=== PATIENT | male | born 1935 | race Caucasian/White ===

== ENCOUNTER 2019-01-23 08:22 | Day surgery (SDC) | payer OTHER ==
[~2019-01-23] VITALS: Ht 160 cm; Wt 71.9 kg
[~2019-01-23 08:22] MED LIST: ACID CONTROL C1 EACH PO; ASPI81CH PO; Aspirin EC81 MG PO; ERGO400 PO; LOVA40 PO; METO50ER PO; TRAM50 PO; VITAMIN D-32000 UNIT PO
[2019-01-23] MEDS ORDERED: Aspirin EC81 MG (08:56)
[2019-01-23] MEDS ORDERED: Gaviscon Foamt1 EACH (08:57)
== END 2019-01-23 10:35 | disposition home or self-care (01) ==
LOC: ORSCSDS 08:22
PROVIDERS: Internal Medicine Gastroenterology
PROC: 0DBK8ZX Excision of Ascending Colon, Via Natural or Artificial Opening Endoscopic, Diagnostic (ICD-10-PCS; principal; 2019-01-23 09:45)
DX: Z12.11 Encounter for screening for malignant neoplasm of colon (principal); K57.30 Diverticulosis of large intestine without perforation or abscess without bleeding; D12.2 Benign neoplasm of ascending colon; Z87.891 Personal history of nicotine dependence; E11.9 Type 2 diabetes mellitus without complications; I10 Essential (primary) hypertension; E78.5 Hyperlipidemia, unspecified; K21.9 Gastro-esophageal reflux disease without esophagitis; Z79.82 Long term (current) use of aspirin; Z79.899 Other long term (current) drug therapy
CPT/HCPCS: 82947; 88305; J2704; J7120

== ENCOUNTER 2021-08-05 11:44 | Inpatient (IN) | payer OTHER ==
[~2021-08-05] VITALS: Ht 160 cm; Wt 67.9 kg
[~2021-08-05 11:44] MED LIST changes: +Aspirin EC81 MG; -ERGO400 PO; +Gaviscon Foamt1 EACH
[2021-08-05 12:45] LABS: BASOPHILS ABSOLUTE AUTO 0.02 K/mm3 (0.00-0.23); BASOPHILS PERCENT AUTO 0 % (0-2); EOSINOPHILS ABSOLUTE AUTO 0.03 K/mm3 (0.00-0.68); EOSINOPHILS PERCENT AUTO 0 % (0-6); Hematocrit 41.1 % (37.0-53.0); Hemoglobin 13.8 g/dL (13.5-17.5); IMMATURE GRAN ABSOLUTE AUTO 0.06 K/mm3 (0.00-0.10); IMMATURE GRAN PERCENT AUTO 1 % (0-1); LYMPHOCYTES ABSOLUTE AUTO 1.31 K/mm3 (0.84-5.20); LYMPHOCYTES PERCENT AUTO 12 % (21-46); MONOCYTES ABSOLUTE AUTO 1.19 K/mm3 (0.16-1.47); MONOCYTES PERCENT AUTO 11 % (4-13); Mean Corpuscular HGB 28.8 pg (26.0-34.0); Mean Corpuscular HGB Conc 33.6 g/dL (31.5-36.5); Mean Corpuscular Volume 86 fL (80-100); Mean Platelet Volume 10.7 fL (9.1-12.4); NEUTROPHILS ABSOLUTE AUTO 8.73 K/mm3 (1.96-9.15); NEUTROPHILS PERCENT AUTO 77 % (41-73); Platelet Count 231 K/mm3 (150-400); RDW Coefficient Variation 13.2 % (11.7-14.2); RDW Standard Deviation 41.6 fL (35.1-46.3); White Blood Cell Count 11.34 K/mm3 (4.00-11.30)
[2021-08-05 13:05] LABS: Albumin/Globulin Ratio 0.7 (0.8-1.8); Bilirubin, Total 0.7 mg/dL (0.1-1.0); Bun/Creatinine Ratio 23.7 (12.0-20.0); Calcium, Blood 8.4 mg/dL (8.5-10.1); Creatinine, Blood 1.35 mg/dL (0.60-1.20); Globulin, Blood 4.1 g/dL (2.2-4.0); Potassium, Blood 4.1 mmol/L (3.5-5.5); Total Protein, Blood 7.1 g/dL (6.4-8.2)
[2021-08-05 13:36] LABS: Influenza A, PCR NEGATIVE (NEGATIVE); Influenza B, PCR NEGATIVE (NEGATIVE); Resp Syncytial Virus, PCR NEGATIVE (NEGATIVE); SARS-Cov-2 (COVID-19) PCR, MMC NEGATIVE (NEGATIVE)
[2021-08-05] MEDS ORDERED: Doxycycline Mo100 M1 PO (18:19)
--- NOTE | 2021-08-05 18:37 | NUR ---
PT ARRIVED TO PCU 6 FROM MEDICAL FLOOR, ASSUMED PT CARE FROM PAMELA GREGORIO ON MEDICAL. DENIES SOB OR CP
--- NOTE | 2021-08-05 18:49 | NUR ---
PT HAD ARRIVED TO FLOOR AT 1540. PT AOX4 AND DENIED ANY CHEST PAIN. PT ABLE TO MAKE NEEDS KNOWN. PT HAD ELEVATED TROPONIN [place] [id number]IGSBY NOTIFIED. DR GRIGSBY REQUESTED PT TO BE TRANSFERED TO PCU. DR GRIGSBY CONTACTED CARDIOLIGIST AND ORDERS WERE FAXED TO PHARMACY. REPORT CALLED TO PCU 6 NURSE PRIOR TO TRANSPORT. NO DISTRESS NOTED AND PT HAD PERSONAL BELONIGS TAKEN WITH HIME.
[2021-08-06 02:28] LABS: BASOPHILS ABSOLUTE AUTO 0.01 K/mm3 (0.00-0.23); BASOPHILS PERCENT AUTO 0 % (0-2); EOSINOPHILS ABSOLUTE AUTO 0.11 K/mm3 (0.00-0.68); EOSINOPHILS PERCENT AUTO 1 % (0-6); Hematocrit 41.5 % (37.0-53.0); Hemoglobin 13.8 g/dL (13.5-17.5); IMMATURE GRAN ABSOLUTE AUTO 0.04 K/mm3 (0.00-0.10); IMMATURE GRAN PERCENT AUTO 0 % (0-1); LYMPHOCYTES ABSOLUTE AUTO 1.39 K/mm3 (0.84-5.20); LYMPHOCYTES PERCENT AUTO 13 % (21-46); MONOCYTES ABSOLUTE AUTO 1.38 K/mm3 (0.16-1.47); MONOCYTES PERCENT AUTO 13 % (4-13); Mean Corpuscular HGB 28.2 pg (26.0-34.0); Mean Corpuscular HGB Conc 33.3 g/dL (31.5-36.5); Mean Corpuscular Volume 85 fL (80-100); Mean Platelet Volume 10.8 fL (9.1-12.4); NEUTROPHILS ABSOLUTE AUTO 7.87 K/mm3 (1.96-9.15); NEUTROPHILS PERCENT AUTO 73 % (41-73); Platelet Count 237 K/mm3 (150-400); RDW Coefficient Variation 13.2 % (11.7-14.2); RDW Standard Deviation 41.6 fL (35.1-46.3)
[2021-08-06 02:46] LABS: Alanine Aminotransfer (ALT/SGP 39 U/L (12-78); Albumin, Blood 2.7 g/dL (3.4-5.0); Albumin/Globulin Ratio 0.6 (0.8-1.8); Alk Phos 65 U/L (50-136); Anion Gap 9 mmol/L (6-16); Aspartate Aminotrans (AST/SGOT 69 U/L (12-37); Bilirubin, Total 0.7 mg/dL (0.1-1.0); Blood Urea Nitrogen 31 mg/dL (8-24); Bun/Creatinine Ratio 23.8 (12.0-20.0); CHOL/HDL RATIO 4.3; CO2, Blood 26 mmol/L (21-32); Calcium, Blood 8.3 mg/dL (8.5-10.1); Chloride, Blood 97 mmol/L (98-108); Cholesterol 150 mg/dL (50-200); Globulin, Blood 4.4 g/dL (2.2-4.0); Glomerular Filtration Rate 53 (60-); Glucose, Blood 152 mg/dL (70-99); HDL Cholesterol 35 mg/dL (>39); LDL/HDL RATIO 2.5; Low Density Lipoprotein Chol 88 mg/dL (0-110); Potassium, Blood 4.4 mmol/L (3.5-5.5); Sodium, Blood 132 mmol/L (136-145); Total Protein, Blood 7.1 g/dL (6.4-8.2); Triglycerides 134 mg/dL (30-160); Very Low Density Lipoprot Chol 26 mg/dL (6-32)
--- NOTE | 2021-08-06 07:11 | NUR ---
SHIFT SUMMARY [id number] PT ORIENTED X4 OVERNIGHT, INCREASED FROM RA --> 4L NC --> BIPAP W/CHEST PAIN AND ST ON TELEMETRY AROUND 0040. MD AND ICU CHARGE PAGED. EKG, IV LASIX X1, MORPHINE X1, AND NITRO SL PRN ORDERED PER MD. SEE EMAR FOR DETAILS. PT REPORTED RESOLUTION OF CP WITH BIPAP. ADEQUATE UOP. WILL PASS ON TO DAY RN
--- NOTE | 2021-08-06 13:18 | NUR ---
PT HAS BEEN A&OX4. DENIES ANY SOB OR CHEST PAIN. PT VOIDING CLEAR, YELLOW URINE WIHTOUT DIFFICULTY. NPO DURING A.M. FOR PROCEDURE. PT LEFT UNIT AT APPROXIMATELY 1250.
--- NOTE | 2021-08-06 17:27 | NUR ---
PT RETURNS FROM [facility]
--- NOTE | 2021-08-06 17:32 | NUR ---
PT RETURNS FROM [facility] WITH RT RADIAL SITE ACCESS. 3 STENTS PLACED IN [employer]. NO ACTIVE BLEEDING NOTED FROM RT RADIAL SITE, NO HEMATOME NOTED, TR BAND IN PLACE WITH 10ML AIR IN BAND. PT A/O X3, ANSWERSING QUESTIONS APPROPRIATELY. REPORTS CONTINUED SOB, DENIES CP. NO PAIN TO RADIAL SITE. PT SITTING UP EATING AT THIS TIME. VSS. PT UPDATING FAMILY AT THIS TIME. WILL PLAN TO RECOVER TR BAND IN 2 HOURS PER PROTOCOL.
--- NOTE | 2021-08-06 18:31 | NUR ---
SHIFT NOTE PT BEGAN THE DAY FREE OF CP AND SOME REPORTED SOB THAT HE STS IS UNCHANGED. PT A/O X4, ANSWERING QUESTIONS IN FULL SENTENCES. PT WENT TO [facility]IFT [facility] JUST BEFORE 1300 THIS AFTERNOON, AND RETURNED AT 1727 WITH 3 STENTS PLACED, ACCESS THROUGH RT RADIAL ARTERY. TR BAND IN PLACE, 10ML AIR IN TR BAND, TR BAND CAN BEGIN RECOVERY AROUND 1927 TONIGHT. NO ACTIVE BLEEDING NOTED AT THIS TIME FROM SITE, TR BAND IN PLACE, RADIAL PULSES INTACT, FULL ROM OF RT FINGERS, GOOD SENSATION OF RT HAND AND FINGERS, SKIN PWD, CAP REFILL <3 SECONDS. PT DENIES PAIN TO RADIAL SITE. DENIES CP, REPORTS SOME CONTINUED SOB, LUNG SOUNDS ARE COARSE T/O WITH AUDIBLE WHEEZES ON EXPIRATION AT THIS TIME. VSS. PT RESTING WEL ILA BED AT THIS TIME, HE DENIES FURTHER NEEDS, CALL LIGHT WITHIN REACH
[2021-08-07 04:07] LABS: BASOPHILS ABSOLUTE AUTO 0.01 K/mm3 (0.00-0.23); BASOPHILS PERCENT AUTO 0 % (0-2); EOSINOPHILS ABSOLUTE AUTO 0.04 K/mm3 (0.00-0.68); EOSINOPHILS PERCENT AUTO 0 % (0-6); Hematocrit 39.9 % (37.0-53.0); Hemoglobin 13.4 g/dL (13.5-17.5); IMMATURE GRAN ABSOLUTE AUTO 0.04 K/mm3 (0.00-0.10); IMMATURE GRAN PERCENT AUTO 0 % (0-1); LYMPHOCYTES ABSOLUTE AUTO 1.54 K/mm3 (0.84-5.20); LYMPHOCYTES PERCENT AUTO 14 % (21-46); MONOCYTES ABSOLUTE AUTO 1.79 K/mm3 (0.16-1.47); MONOCYTES PERCENT AUTO 16 % (4-13); Mean Corpuscular HGB 28.4 pg (26.0-34.0); Mean Corpuscular HGB Conc 33.6 g/dL (31.5-36.5); Mean Corpuscular Volume 85 fL (80-100); Mean Platelet Volume 10.2 fL (9.1-12.4); NEUTROPHILS ABSOLUTE AUTO 7.71 K/mm3 (1.96-9.15); NEUTROPHILS PERCENT AUTO 69 % (41-73); Platelet Count 259 K/mm3 (150-400); RDW Coefficient Variation 13.3 % (11.7-14.2); RDW Standard Deviation 41.3 fL (35.1-46.3); Red Blood Cell Count 4.72 M/mm3 (4.30-5.90); White Blood Cell Count 11.13 K/mm3 (4.00-11.30)
[2021-08-07 04:30] LABS: Bun/Creatinine Ratio 22.4 (12.0-20.0); Calcium, Blood 8.1 mg/dL (8.5-10.1); Creatinine, Blood 1.47 mg/dL (0.60-1.20); Magnesium, Blood 2.3 mg/dL (1.6-2.4); Potassium, Blood 4.2 mmol/L (3.5-5.5)
--- NOTE | 2021-08-07 06:35 | NUR ---
ASSUMED CARE OF PATIENT @1904. TR BAND IN PLACE, VSS POST PCI W/INTERVENTION. 2ML AIR REMOVED Q15MIN - TOTAL OF 10ML REMOVED. TR BAND REMOVED @ 2114 WITH SITE CDI. 2134 - PT CALLED OUT WITH COMPLAINTS OF SOA AT REST, PT TACHYPNEIC, O2 NEEDS INCREASED FROM 2.5 TO 5L NC. LUNGS W/CRACKLES AND DIM. ST ON TELE IN 110S-120S. CARDIOLOGY ON-CALL AND RT PAGED. RT TO BEDSIDE, CARDIOLOGY ON FLOOR AND DISCUSSED PT WITH DR. LIVINGSTON. ORDERS RECEIVED TO STOP IVF, IV BUMEX X1, AND BIPAP APPLIED. PT REPORTED RELIEF OF SOA. PT REMAINED ON BIPAP OVERNIGHT, SLEPT INTERMITTENTLY. VSS. NO ACUTE CHANGES BEYOND WHAT IS NOTED ABOVE. WILL PASS ON TO DAY RN
--- NOTE | 2021-08-07 18:30 | NUR ---
PT SUMMARY: PT TITRATED DOWN TO 2L ON O2 VIA NASAL CANNULA SATS KEPT ABOVE 95%, BIPAP AT BEDSIDE PRN. PT REPORTED HE'S BEEN HAVING PINK SPUTUM, SPUTUM COLLECTED AND SENT TO LAB TO CULTURE, PT STILL HAS /SOB MOSTLY WITH EXERTION, ON IV LASIX. DENIES ANY CHEST PAIN/DISCOMFORT. RIGHT RADIAL ACCESS SITE REMAINED INTACT WITH TEG DRESSING ON. VITALS STABLE HRR ST 90-110'S, BP SYSTOLIC 115-140'S, AFEBRILE. PT HAS BEEN MOVING INDEPENDENTLY IN BED, CALLS APPROPRIATELY ABLE TO AMBULATE TO THE BATHROOM WITH NO ISSUES. PT FOR POSSIBLE DC IN AM. NO OTHER ISSUES REPORTED AT THIS TIME. WILL REPORT TO ONCOMING SHIFT
[2021-08-08 03:42] LABS: Hematocrit 35.5 % (37.0-53.0); Hemoglobin 11.9 g/dL (13.5-17.5); Mean Corpuscular HGB 28.3 pg (26.0-34.0); Mean Corpuscular HGB Conc 33.5 g/dL (31.5-36.5); Mean Corpuscular Volume 85 fL (80-100); Platelet Count 276 K/mm3 (150-400); RDW Coefficient Variation 13.2 % (11.7-14.2); RDW Standard Deviation 41.1 fL (35.1-46.3); White Blood Cell Count 9.43 K/mm3 (4.00-11.30)
[2021-08-08 04:07] LABS: Bun/Creatinine Ratio 26.6 (12.0-20.0); Calcium, Blood 8.1 mg/dL (8.5-10.1); Creatinine, Blood 1.39 mg/dL (0.60-1.20); Magnesium, Blood 2.3 mg/dL (1.6-2.4); Potassium, Blood 4.3 mmol/L (3.5-5.5)
--- NOTE | 2021-08-08 05:59 | NUR ---
ASSUMED CARE OF PT @1900. PT ORIENTED X4, NO COMPLAINTS OF PAIN. LUNGS DIM W/CRACKLES IN BASES. SOA ON EXERTION. PT ON 2-3L NC OVERNIGHT, UNABLE TO TITRATE DOWN D/T INTOLERANCE. O2 SATS 92-95% ST ON TELEMETRY. ADEQUATE UOP PER URINAL VOIDS. WILL PASS ON TO DAY RN
[2021-08-08] MEDS ORDERED: Aspir 8181 MG PO (11:21)
[2021-08-08] MEDS ORDERED: ATORVASTATIN CA40 MG PO (11:21)
[2021-08-08] MEDS ORDERED: CLOP75 PO (11:22)
[2021-08-08] MEDS ORDERED: ISOSORBIDE MONO60 MG PO (11:23)
[2021-08-08] MEDS ORDERED: TORSE20 PO (11:24)
[2021-08-08] MEDS ORDERED: NITR.4SL SL (11:24)
--- NOTE | 2021-08-08 12:39 | NUR ---
PT DISCHARGE TO HOME TODAY WITH DISCHARGE ORDERS. PT TITRATED TO RA PT SATS KEPT ABOVE 90% EVEN WITH AMBULATION AND WHEN SLEEPING. PT STATED STEPHANIE FELLS MUCH BETTER TODAY. DISCHARGE INSTRUCTIONS AND MEDICATIONS DISCLOSED WITH THE PT, PT VERBALIZED UNDERSTANDING. TO FF-UP WITH PCP AND CARDIOLOGY REFERRAL FAXED TO THE OFFICE, PRESCRIPTIONS SENT TO [facility]. ALL BELONGINGS SENT WITH THE PT. ACCOMPANIED TO DISCHARGE VIA WHEELCHAIR PICKED UP BYT SON AND .
== END 2021-08-08 12:04 | disposition home or self-care (01) | DRG 246 ==
LOC: ER 11:44 → PCU 15:15 → MEDS 15:15 → PCU 18:39
PROVIDERS: Internal Medicine; Internal Medicine Cardiovascular Disease; Internal Medicine Interventional Cardiology; Physician Assistant; ADMIT Internal Medicine
PROC: 4A023N7 Measurement of Cardiac Sampling and Pressure, Left Heart, Percutaneous Approach (ICD-10-PCS; principal; 2021-08-06)
PROC: B2111ZZ Fluoroscopy of Multiple Coronary Arteries using Low Osmolar Contrast (ICD-10-PCS; 2021-08-06)
PROC: 027135Z Dilation of Coronary Artery, Two Arteries with Two Drug-eluting Intraluminal Devices, Percutaneous Approach (ICD-10-PCS; 2021-08-06)
PROC: B240ZZ3 Ultrasonography of Single Coronary Artery, Intravascular (ICD-10-PCS; 2021-08-06)
DX: I21.4 Non-ST elevation (NSTEMI) myocardial infarction (principal); I50.31 Acute diastolic (congestive) heart failure; I13.0 Hypertensive heart and chronic kidney disease with heart failure and stage 1 through stage 4 chronic kidney disease, or unspecified chronic kidney disease; N17.9 Acute kidney failure, unspecified; E87.1 Hypo-osmolality and hyponatremia; Z20.822 Contact with and (suspected) exposure to COVID-19; R77.8 Other specified abnormalities of plasma proteins; I25.2 Old myocardial infarction; N18.30 Chronic kidney disease, stage 3 unspecified; I34.0 Nonrheumatic mitral (valve) insufficiency; I27.20 Pulmonary hypertension, unspecified; I25.5 Ischemic cardiomyopathy; E11.22 Type 2 diabetes mellitus with diabetic chronic kidney disease; E78.5 Hyperlipidemia, unspecified; Z96.662 Presence of left artificial ankle joint; Z98.61 Coronary angioplasty status; Z79.02 Long term (current) use of antithrombotics/antiplatelets; Z88.0 Allergy status to penicillin; Z79.899 Other long term (current) drug therapy; Z79.82 Long term (current) use of aspirin; Z87.891 Personal history of nicotine dependence
CPT/HCPCS: 0241U; 36415; 71046; 80048; 80053; 80061; 82947; 83735; 83880; 84145; 84484; 85025; 85027; 85347; 85520; 86850; 86900; 86901; 87070; 87205; 92978; 92979; 93005; 93010; 93306; 93458; 94660; 94762; 96365; 96375; 99152; 99153; 99285-25; A9270; C1725; C1753; C1769; C1874; C1887; C1894; C9600; C9601; J0456; J0696; J1644; J1940; J1956; J2250; J2370; J3010; J7030; J7040; J7050; Q9967

== ENCOUNTER 2021-09-06 12:28 | Emergency (ER) | payer OTHER ==
[~2021-09-06] VITALS: Ht 160 cm; Wt 69.0 kg
[~2021-09-06 12:28] MED LIST changes: +ATORVASTATIN CA40 MG PO; +Aspir 8181 MG PO; +CLOP75 PO; +Doxycycline Mo100 M1 PO; +ISOSORBIDE MONO60 MG PO; +NITR.4SL SL; +TORSE20 PO
[2021-09-06 13:13] LABS: BASOPHILS ABSOLUTE AUTO 0.02 K/mm3 (0.00-0.23); BASOPHILS PERCENT AUTO 0 % (0-2); EOSINOPHILS ABSOLUTE AUTO 0.37 K/mm3 (0.00-0.68); EOSINOPHILS PERCENT AUTO 5 % (0-6); Hematocrit 38.1 % (37.0-53.0); Hemoglobin 12.5 g/dL (13.5-17.5); IMMATURE GRAN ABSOLUTE AUTO 0.02 K/mm3 (0.00-0.10); IMMATURE GRAN PERCENT AUTO 0 % (0-1); LYMPHOCYTES ABSOLUTE AUTO 2.14 K/mm3 (0.84-5.20); LYMPHOCYTES PERCENT AUTO 31 % (21-46); MONOCYTES ABSOLUTE AUTO 0.71 K/mm3 (0.16-1.47); MONOCYTES PERCENT AUTO 10 % (4-13); Mean Corpuscular HGB 28.5 pg (26.0-34.0); Mean Corpuscular HGB Conc 32.8 g/dL (31.5-36.5); Mean Corpuscular Volume 87 fL (80-100); Mean Platelet Volume 10.4 fL (9.1-12.4); NEUTROPHILS ABSOLUTE AUTO 3.73 K/mm3 (1.96-9.15); NEUTROPHILS PERCENT AUTO 53 % (41-73); Platelet Count 168 K/mm3 (150-400); RDW Coefficient Variation 13.6 % (11.7-14.2); RDW Standard Deviation 43.3 fL (35.1-46.3); Red Blood Cell Count 4.39 M/mm3 (4.30-5.90); White Blood Cell Count 6.99 K/mm3 (4.00-11.30)
[2021-09-06 13:39] LABS: Albumin, Blood 3.2 g/dL (3.4-5.0); Albumin/Globulin Ratio 0.9 (0.8-1.8); Bilirubin, Total 0.5 mg/dL (0.1-1.0); Bun/Creatinine Ratio 16.5 (12.0-20.0); Calcium, Blood 8.7 mg/dL (8.5-10.1); Creatinine, Blood 1.33 mg/dL (0.60-1.20); Globulin, Blood 3.6 g/dL (2.2-4.0); Potassium, Blood 4.2 mmol/L (3.5-5.5); Total Protein, Blood 6.8 g/dL (6.4-8.2)
[2021-09-06] MEDS ORDERED: Aldactone50 MG PO ×2 (15:21→15:33)
[2021-09-06] MEDS ORDERED: TORSE20 PO (15:33)
== END 2021-09-06 16:13 | disposition home or self-care (01) ==
LOC: ER 12:28
PROVIDERS: Emergency Medicine
DX: I11.0 Hypertensive heart disease with heart failure (principal); I50.9 Heart failure, unspecified; I25.10 Atherosclerotic heart disease of native coronary artery without angina pectoris; I25.5 Ischemic cardiomyopathy; E78.00 Pure hypercholesterolemia, unspecified; R73.03 Prediabetes; I25.2 Old myocardial infarction; Z88.0 Allergy status to penicillin; Z79.82 Long term (current) use of aspirin; Z79.899 Other long term (current) drug therapy
CPT/HCPCS: 71046; 80053; 84484; 85025; 93005; 93010

== ENCOUNTER 2023-06-07 06:10 | Day surgery (SDC) | payer OTHER ==
[~2023-06-07] VITALS: Ht 160 cm; Wt 71.2 kg
[~2023-06-07 06:10] MED LIST changes: +Aldactone50 MG PO; +METO100ER PO; -METO50ER PO; +VITAMIN D350 MC3 PO
[2023-06-07] MEDS ORDERED: BENZ100A (06:49)
--- NOTE | 2023-06-07 07:37 | NUR ---
06/07/23 0737 Michelle Parmar PREFORMED A BLOCK OF THE LEFT HAND IN PREOP. TIME WAS DONE AT 0734.
[2023-06-07 08:21] VITALS: BP 152/85
--- NOTE | 2023-06-07 08:53 | NUR ---
06/07/23 0853 Hardik Barraza IV REMOVED INTACT. SITE WNL.
== END 2023-06-07 08:55 | disposition home or self-care (01) ==
LOC: ORSCSDS 06:10
PROVIDERS: Orthopaedic Surgery
PROC: 01N50ZZ Release Median Nerve, Open Approach (ICD-10-PCS; principal; 2023-06-07 07:30)
DX: G56.03 Carpal tunnel syndrome, bilateral upper limbs (principal); E11.22 Type 2 diabetes mellitus with diabetic chronic kidney disease; N18.9 Chronic kidney disease, unspecified; I25.2 Old myocardial infarction; Z79.82 Long term (current) use of aspirin; Z79.899 Other long term (current) drug therapy
CPT/HCPCS: 82947; J2250; J7120

== ENCOUNTER 2023-11-30 11:19 | Emergency (ER) | payer OTHER ==
[~2023-11-30] VITALS: Ht 160 cm; Wt 70.0 kg
[~2023-11-30 11:19] MED LIST changes: +BENZ100A
[2023-11-30 12:57] LABS: BASOPHILS ABSOLUTE AUTO 0.02 K/mm3 (0.00-0.23); BASOPHILS PERCENT AUTO 0 % (0-2); EOSINOPHILS ABSOLUTE AUTO 0.06 K/mm3 (0.00-0.68); EOSINOPHILS PERCENT AUTO 1 % (0-6); Hematocrit 44.4 % (37.0-53.0); Hemoglobin 14.2 g/dL (13.5-17.5); IMMATURE GRAN ABSOLUTE AUTO 0.03 K/mm3 (0.00-0.10); IMMATURE GRAN PERCENT AUTO 0 % (0-1); LYMPHOCYTES ABSOLUTE AUTO 1.08 K/mm3 (0.84-5.20); LYMPHOCYTES PERCENT AUTO 14 % (21-46); MONOCYTES ABSOLUTE AUTO 0.67 K/mm3 (0.16-1.47); MONOCYTES PERCENT AUTO 8 % (4-13); Mean Corpuscular HGB 28.8 pg (26.0-34.0); Mean Corpuscular Volume 90 fL (80-100); Mean Platelet Volume 9.9 fL (9.1-12.4); NEUTROPHILS ABSOLUTE AUTO 6.15 K/mm3 (1.96-9.15); NEUTROPHILS PERCENT AUTO 77 % (41-73); Platelet Count 219 K/mm3 (150-400); RDW Coefficient Variation 15.2 % (11.7-14.2); RDW Standard Deviation 50.5 fL (35.1-46.3); Red Blood Cell Count 4.93 M/mm3 (4.30-5.90); White Blood Cell Count 8.01 K/mm3 (4.00-11.30)
[2023-11-30 13:26] LABS: Albumin, Blood 3.8 g/dL (3.4-5.0); Albumin/Globulin Ratio 1.2 (0.8-1.8); Bilirubin, Total 1.4 mg/dL (0.1-1.0); Bun/Creatinine Ratio 19.2 (12.0-20.0); Creatinine, Blood 1.72 mg/dL (0.60-1.20); Globulin, Blood 3.2 g/dL (2.2-4.0); Potassium, Blood 4.8 mmol/L (3.5-5.5)
[2023-11-30] MEDS ORDERED: VITAMIN D31000 UNI1 PO (13:50)
[2023-11-30] MEDS ORDERED: FARXIGA10 MG PO (13:51)
[2023-11-30] MEDS ORDERED: ALBU90OI INH (13:51)
[2023-11-30] MEDS ORDERED: LOSA25 PO (13:51)
[2023-11-30] MEDS ORDERED: Furosemide 10 MG/ML 4ML Vial IV ONE (16:45)
[2023-11-30 18:00] VITALS: BP 121/78
== END 2023-11-30 18:38 | disposition home or self-care (01) ==
LOC: ER 11:19
PROVIDERS: Nurse Practitioner
DX: I11.9 Hypertensive heart disease without heart failure (principal); I50.9 Heart failure, unspecified; E78.00 Pure hypercholesterolemia, unspecified; Z79.02 Long term (current) use of antithrombotics/antiplatelets; Z88.0 Allergy status to penicillin; Z88.8 Allergy status to other drugs, medicaments and biological substances; Z79.899 Other long term (current) drug therapy
CPT/HCPCS: 71046; 71260; 80053; 83880; 84484; 85025; 85379; 93005; 93010; 96374-59; 99285-25; J1940; Q9967

== ENCOUNTER → 2023-12-22 | Outpatient (CLI) | payer OTHER ==
[~2023-12-22] MED LIST changes: +ALBU90OI INH; +FARXIGA10 MG PO; +LOSA25 PO; +VITAMIN D31000 UNI1 PO
[2023-12-22 13:37] LABS: Microalb/Creat Ratio UR, Rand 17.843 mg/g (0.000-30.000); Microalbumin, Random Urine 18.2 mg/L (0.000-20.000)
== END | disposition home or self-care (01) ==
LOC: LAB SHORT 09:00 → LAB 09:00 → LAB FUT 12-21 07:30
PROVIDERS: Internal Medicine
DX: I12.9 Hypertensive chronic kidney disease with stage 1 through stage 4 chronic kidney disease, or unspecified chronic kidney disease (principal); E11.22 Type 2 diabetes mellitus with diabetic chronic kidney disease; N18.31 Chronic kidney disease, stage 3a; E78.5 Hyperlipidemia, unspecified
CPT/HCPCS: 82043; 82570

== ENCOUNTER → 2025-01-30 | Outpatient (CLI) | payer OTHER ==
[2025-01-30 14:37] LABS: Creatinine, Urine Random 46.3 mg/dL (27.00-270.00); Microalb/Creat Ratio UR, Rand 24.19 mg/g (0.000-30.000); Microalbumin, Random Urine 11.2 mg/L (0.000-20.000)
== END ==
LOC: LAB 10:50 → LAB SHORT 10:50 → LAB FUT 10-31 12:05
PROVIDERS: Internal Medicine
DX: D64.9 Anemia, unspecified (principal); E11.22 Type 2 diabetes mellitus with diabetic chronic kidney disease; N18.31 Chronic kidney disease, stage 3a
CPT/HCPCS: 82043; 82570

== ENCOUNTER 2025-04-17 20:47 | Observation (INO) | payer OTHER ==
[~2025-04-17] VITALS: Ht 162.6 cm; Wt 62.7 kg
[~2025-04-17 20:47] MED LIST changes: -POTA10T PO
[2025-04-17] MEDS ORDERED: NS 1,000 ML IV SCH (21:35)
[2025-04-17 21:42] LABS: BASOPHILS ABSOLUTE AUTO 0.01 K/mm3 (0.00-0.23); BASOPHILS PERCENT AUTO 0 % (0-2); EOSINOPHILS ABSOLUTE AUTO 0.20 K/mm3 (0.00-0.68); EOSINOPHILS PERCENT AUTO 3 % (0-6); Hematocrit 39.6 % (37.0-53.0); Hemoglobin 13.0 g/dL (13.5-17.5); IMMATURE GRAN ABSOLUTE AUTO 0.03 K/mm3 (0.00-0.10); IMMATURE GRAN PERCENT AUTO 0 % (0-1); LYMPHOCYTES ABSOLUTE AUTO 0.86 K/mm3 (0.84-5.20); LYMPHOCYTES PERCENT AUTO 12 % (21-46); MONOCYTES ABSOLUTE AUTO 0.79 K/mm3 (0.16-1.47); MONOCYTES PERCENT AUTO 11 % (4-13); Mean Corpuscular HGB Conc 32.8 g/dL (31.5-36.5); Mean Corpuscular Volume 85 fL (80-100); NEUTROPHILS ABSOLUTE AUTO 5.04 K/mm3 (1.96-9.15); NEUTROPHILS PERCENT AUTO 73 % (41-73); NRBC ABSOLUTE 0.00 K/mm3 (0.00-0.02); NRBC Auto 0.0 /100 WBC (0.0-0.2); Platelet Count 174 K/mm3 (150-400); RDW Coefficient Variation 15.4 % (11.7-14.2); RDW Standard Deviation 48.1 fL (35.1-46.3)
[2025-04-17 22:00] LABS: Alanine Aminotransfer (ALT/SGP 96.0 U/L (12-78); Albumin, Blood 3.4 g/dL (3.4-5.0); Albumin/Globulin Ratio 0.9 (0.8-1.8); Anion Gap 9.0 mmol/L (3-11); Aspartate Aminotrans (AST/SGOT 35.0 U/L (12-37); Bilirubin, Total 2.7 mg/dL (0.1-1.0); Blood Urea Nitrogen 28.0 mg/dL (8-24); CO2, Blood 26.0 mmol/L (21-32); Calcium, Blood 8.8 mg/dL (8.5-10.1); Chloride, Blood 106.0 mmol/L (98-108); Creatinine, Blood 1.38 mg/dL (0.60-1.20); Globulin, Blood 3.6 g/dL (2.2-4.0); Glucose, Blood 103.0 mg/dL (70-99); Potassium, Blood 4.0 mmol/L (3.5-5.5); Sodium, Blood 137.0 mmol/L (136-145); Total Protein, Blood 7.0 g/dL (6.4-8.2)
[2025-04-17] MEDS ORDERED: Ampicillin Sod/Sulbactam Sod 3 GM in NS 100 ML IV ONE (22:00)
[2025-04-17 22:20] LABS: Prothrombin Time Results 11.5 Sec (9.7-11.5)
[2025-04-17] MEDS ORDERED: Ondansetron HCl 2 MG / ML 2ML Vial IV PRN (23:15)
[2025-04-17] MEDS ORDERED: FLU VACC TS2025-26(6MOS UP)/PF 45 MCG/0.5 ML SYRINGE IM SCH (23:20)
[2025-04-18] MEDS ORDERED: Ampicillin Sod/Sulbactam Sod 3 GM in NS 100 ML IV SCH (02:00)
[2025-04-18] MEDS ORDERED: NS 250 ML IV PRN (02:20)
[2025-04-18 02:32] VITALS: BP 128/78
[2025-04-18 04:32] VITALS: BP 121/79
[2025-04-18 04:42] LABS: BASOPHILS ABSOLUTE AUTO 0.00 K/mm3 (0.00-0.23); BASOPHILS PERCENT AUTO 0 % (0-2); EOSINOPHILS ABSOLUTE AUTO 0.34 K/mm3 (0.00-0.68); EOSINOPHILS PERCENT AUTO 5 % (0-6); Hematocrit 36.4 % (37.0-53.0); Hemoglobin 11.7 g/dL (13.5-17.5); IMMATURE GRAN ABSOLUTE AUTO 0.04 K/mm3 (0.00-0.10); IMMATURE GRAN PERCENT AUTO 1 % (0-1); LYMPHOCYTES ABSOLUTE AUTO 0.84 K/mm3 (0.84-5.20); LYMPHOCYTES PERCENT AUTO 13 % (21-46); MONOCYTES ABSOLUTE AUTO 0.73 K/mm3 (0.16-1.47); MONOCYTES PERCENT AUTO 11 % (4-13); Mean Corpuscular HGB Conc 32.1 g/dL (31.5-36.5); Mean Corpuscular Volume 86 fL (80-100); NEUTROPHILS ABSOLUTE AUTO 4.60 K/mm3 (1.96-9.15); NEUTROPHILS PERCENT AUTO 70 % (41-73); NRBC ABSOLUTE 0.00 K/mm3 (0.00-0.02); NRBC Auto 0.0 /100 WBC (0.0-0.2); Platelet Count 152 K/mm3 (150-400); RDW Coefficient Variation 15.3 % (11.7-14.2); RDW Standard Deviation 48.5 fL (35.1-46.3)
[2025-04-18 05:16] LABS: Alanine Aminotransfer (ALT/SGP 70.0 U/L (12-78); Albumin, Blood 2.8 g/dL (3.4-5.0); Albumin/Globulin Ratio 0.9 (0.8-1.8); Anion Gap 11.0 mmol/L (3-11); Aspartate Aminotrans (AST/SGOT 26.0 U/L (12-37); Bilirubin, Total 2.3 mg/dL (0.1-1.0); Blood Urea Nitrogen 25.0 mg/dL (8-24); CO2, Blood 23.0 mmol/L (21-32); Calcium, Blood 8.5 mg/dL (8.5-10.1); Chloride, Blood 109.0 mmol/L (98-108); Creatinine, Blood 1.25 mg/dL (0.60-1.20); Globulin, Blood 3.1 g/dL (2.2-4.0); Glucose, Blood 83.0 mg/dL (70-99); Magnesium, Blood 2.5 mg/dL (1.6-2.4); Potassium, Blood 3.8 mmol/L (3.5-5.5); Sodium, Blood 139.0 mmol/L (136-145); Total Protein, Blood 5.9 g/dL (6.4-8.2)
--- NOTE | 2025-04-18 06:07 | NUR ---
SHIFT SUMMARY PT ADMITTED FOR EPIGASTRIC PAIN AND ELEVATED LIVER ENZYMES. PT FOR MRCP TODAY- CHECKLIST COMPLETED AND FAXED TO RADIOLOGY. PT NPO PER ORDER- MOUTH CARE ITEMS PROVIDED FOR PT. PT DENIES THE NEED FOR PAIN MEDICATION. PT TURNS SELF IN BED- DECLINED TO CHANGE INTO HOSPITAL GOWN. IV ANTIBIOTICS GIVEN PER ORDER. PT SLEPT INTERMITTENTLY DURING THE NIGHT.
[2025-04-18 07:15] VITALS: BP 134/87
[2025-04-18] MEDS ORDERED: Lactobacil 2-S.Thermo-Bifido 1 1 Cap PO SCH (09:00)
[2025-04-18] MEDS ORDERED: Enoxaparin 40 MG/0.4 ML SYR SC SCH (09:00)
--- NOTE | 2025-04-18 11:04 | NUR ---
"SPiritual Care Visit | Pt. Request Pt. is awake in bed when he welcomes my visit. Pt. is pleasant. Facilitate a life review and consider matters of brittany and belief. Listen with emapthy and a calming presence. Pt. verbalized very clearly some limitations to his code status. This biomechanical engineer recommended that a Palliaitive Care nurse visit him prior to his tests at 1300, and he Pt. was agreeable to that. Prayed with the Pt. Pt. vebralized gratitude for the spiritual care visit. Informed the Palliative Care team of the Pts. wishes."
[2025-04-18 12:42] VITALS: BP 131/81
[2025-04-18 15:31] VITALS: BP 138/86
--- NOTE | 2025-04-18 18:25 | NUR ---
NO ACUTE CHANGES, PLEASANT TO CARE, NPO AT 3 AM AND NO OPOIDS AFTER 3 AM FOR HIDA SCAN SCHEDULED AT 9 AM. PATIENT EATING DINNER NOW, MCRP SHOWED GALL STONES, HIDA SCAN TO FURTHER SEE STONES. PATIENT DENEID PAIN THROUGH THE DAY HAS ONLY ATE ONE MEAL, CALL LIGHT WITH IN REACH, WILL RELAY TO PM RN
[2025-04-18 20:20] VITALS: BP 106/69
[2025-04-19 00:28] VITALS: BP 145/80
[2025-04-19 04:02] VITALS: BP 123/86
--- NOTE | 2025-04-19 05:26 | NUR ---
END OF SHIFT SUMMARY: A&Ox4. PLEASANT AND COOPERATIVE WITH CARE. CALLS APPROPRIATELY AND IS ABLE TO ADVOCATE NEEDS EFFECTIVELY. VSS. TELE STRIP IN CHART REVIEWED AND INTERPRETED SINUS c BBB & PVCs. BREATHING EVEN AND UNLABORED c RA. CONTINENT OF BOWEL AND BLADDER; LBM 04/18/25. TOLERATING DIET AND HAS BEEN NPO SINCE 299 IN ANTICIPATION OF HIDA SCAN TODAY. AMBULATES INDEPENDENTLY c SBA. MEDS WHOLE c FLUIDS. BED IN LOWEST POSITION, CALL LIGHT WITHIN REACH, ALL NEEDS MET. REPORT TO ONCOMING NURSE.
[2025-04-19] MEDS ORDERED: POTA10T PO (06:02)
[2025-04-19] MEDS ORDERED: Albuterol HFA200 ACT/6.7 GM INH INH PRN (07:05)
[2025-04-19 07:15] LABS: BASOPHILS ABSOLUTE AUTO 0.02 K/mm3 (0.00-0.23); BASOPHILS PERCENT AUTO 0 % (0-2); EOSINOPHILS ABSOLUTE AUTO 0.44 K/mm3 (0.00-0.68); EOSINOPHILS PERCENT AUTO 7 % (0-6); Hematocrit 39.8 % (37.0-53.0); Hemoglobin 13.0 g/dL (13.5-17.5); IMMATURE GRAN ABSOLUTE AUTO 0.03 K/mm3 (0.00-0.10); IMMATURE GRAN PERCENT AUTO 1 % (0-1); LYMPHOCYTES ABSOLUTE AUTO 0.81 K/mm3 (0.84-5.20); LYMPHOCYTES PERCENT AUTO 14 % (21-46); MONOCYTES ABSOLUTE AUTO 0.75 K/mm3 (0.16-1.47); MONOCYTES PERCENT AUTO 13 % (4-13); Mean Corpuscular HGB Conc 32.7 g/dL (31.5-36.5); Mean Corpuscular Volume 86 fL (80-100); NEUTROPHILS ABSOLUTE AUTO 3.94 K/mm3 (1.96-9.15); NEUTROPHILS PERCENT AUTO 66 % (41-73); NRBC ABSOLUTE 0.00 K/mm3 (0.00-0.02); NRBC Auto 0.0 /100 WBC (0.0-0.2); Platelet Count 191 K/mm3 (150-400); RDW Coefficient Variation 15.1 % (11.7-14.2); RDW Standard Deviation 47.9 fL (35.1-46.3)
[2025-04-19] MEDS ORDERED: Polyethylene Glycol 3350 17 gm PO PRN (07:20)
[2025-04-19 07:35] VITALS: BP 125/81
[2025-04-19 07:38] LABS: Alanine Aminotransfer (ALT/SGP 54.0 U/L (12-78); Albumin, Blood 2.7 g/dL (3.4-5.0); Albumin/Globulin Ratio 0.8 (0.8-1.8); Anion Gap 8.0 mmol/L (3-11); Aspartate Aminotrans (AST/SGOT 21.0 U/L (12-37); Bilirubin, Total 1.7 mg/dL (0.1-1.0); Blood Urea Nitrogen 25.0 mg/dL (8-24); CO2, Blood 26.0 mmol/L (21-32); Calcium, Blood 8.8 mg/dL (8.5-10.1); Chloride, Blood 107.0 mmol/L (98-108); Creatinine, Blood 1.31 mg/dL (0.60-1.20); Globulin, Blood 3.5 g/dL (2.2-4.0); Glucose, Blood 111.0 mg/dL (70-99); Potassium, Blood 4.7 mmol/L (3.5-5.5); Sodium, Blood 136.0 mmol/L (136-145); Total Protein, Blood 6.2 g/dL (6.4-8.2)
[2025-04-19] MEDS ORDERED: NS 1,000 ML IV SCH (08:00)
[2025-04-19 08:41] VITALS: BP 143/91
--- NOTE | 2025-04-19 08:58 | NUR ---
PALLIATIVE CARE NOTE: CONSULT RECEIVED/REQUESTED BY REST ROOM ATTENDANT RESULTED POST CONVERSATION PT INFORMED REST ROOM ATTENDANT HE WOULD NOT WANT CARDIOVERSION. CONSULT PLACED REQUESTED. MEDICAL RECORD REVIEWED. PT HAS NO POLST OR AD ON FILE OR THROUGH [facility]. PT HAS LIVER MASS FOUND WITH US.
[2025-04-19] MEDS ORDERED: Misc. Tablet PO SCH (09:00)
[2025-04-19] MEDS ORDERED: Torsemide 20 MG TAB PO SCH (09:00)
[2025-04-19] MEDS ORDERED: Cholecalciferol 1000 Unit Tablet (=25MCG) PO SCH (09:00)
[2025-04-19 11:14] VITALS: BP 118/62
[2025-04-19 15:17] VITALS: BP 102/69
--- NOTE | 2025-04-19 16:48 | NUR ---
DISCHARGE NOTE: TELE LEADS AND IV REMOVED FROM PT. PT PRESENTED WITH DISCHARGE PACKET AND EDUCATED BY THIS RN. PT LEFT MEDICAL FLOOR IN STABLE CONDITION IN WHEELCHAIR W/ LABOR/EXCAVATOR.
--- NOTE | 2025-04-19 17:10 | NUR ---
THIS ACCOUNTS PAYABLE CLERK HAS REVIEWED AND AGREES WITH ALL NOTES AND ASSESSMENTS BY JG LEONG.
== END 2025-04-19 16:15 | disposition home or self-care (01) ==
LOC: ER 20:47 → ERHOLD 20:48 → MEDS 20:48 → ENPENDDIS 04-19 14:38 → MEDS 04-19 16:15
PROVIDERS: Emergency Medicine; ADMIT Student in an Organized Health Care Education/Training Program
DX: R10.11 Right upper quadrant pain (principal); I25.10 Atherosclerotic heart disease of native coronary artery without angina pectoris; E78.5 Hyperlipidemia, unspecified; I27.20 Pulmonary hypertension, unspecified; N18.32 Chronic kidney disease, stage 3b; I50.22 Chronic systolic (congestive) heart failure; I13.0 Hypertensive heart and chronic kidney disease with heart failure and stage 1 through stage 4 chronic kidney disease, or unspecified chronic kidney disease; E80.6 Other disorders of bilirubin metabolism; Z87.891 Personal history of nicotine dependence; Z88.0 Allergy status to penicillin; Z88.8 Allergy status to other drugs, medicaments and biological substances; Z79.899 Other long term (current) drug therapy
CPT/HCPCS: 36415; 71046; 74181; 76705; 78226; 80053; 82248; 82947; 83690; 83735; 84484; 85025; 85610; 85730; 93005; 93010; 94762; 96365; 96366; 96376; 99285-25; A9270; A9537; G0378; J0295; J7030; J7050

== ENCOUNTER → 2025-04-17 | Outpatient (CLI) | payer OTHER ==
[~2025-04-17] MED LIST changes: +POTA10T PO
[2025-04-17 13:25] LABS: BASOPHILS ABSOLUTE AUTO 0.01 K/mm3 (0.00-0.23); BASOPHILS PERCENT AUTO 0 % (0-2); EOSINOPHILS ABSOLUTE AUTO 0.13 K/mm3 (0.00-0.68); EOSINOPHILS PERCENT AUTO 2 % (0-6); Hematocrit 38.7 % (37.0-53.0); Hemoglobin 13.1 g/dL (13.5-17.5); IMMATURE GRAN ABSOLUTE AUTO 0.04 K/mm3 (0.00-0.10); IMMATURE GRAN PERCENT AUTO 1 % (0-1); LYMPHOCYTES ABSOLUTE AUTO 0.73 K/mm3 (0.84-5.20); LYMPHOCYTES PERCENT AUTO 10 % (21-46); MONOCYTES ABSOLUTE AUTO 0.74 K/mm3 (0.16-1.47); MONOCYTES PERCENT AUTO 10 % (4-13); Mean Corpuscular HGB Conc 33.9 g/dL (31.5-36.5); Mean Corpuscular Volume 85 fL (80-100); NEUTROPHILS ABSOLUTE AUTO 5.77 K/mm3 (1.96-9.15); NEUTROPHILS PERCENT AUTO 78 % (41-73); NRBC ABSOLUTE 0.00 K/mm3 (0.00-0.02); NRBC Auto 0.0 /100 WBC (0.0-0.2); Platelet Count 154 K/mm3 (150-400); RDW Coefficient Variation 15.4 % (11.7-14.2); RDW Standard Deviation 48.1 fL (35.1-46.3)
[2025-04-17 13:37] LABS: Alanine Aminotransfer (ALT/SGP 109.0 U/L (12-78); Albumin, Blood 3.2 g/dL (3.4-5.0); Albumin/Globulin Ratio 0.9 (0.8-1.8); Anion Gap 13.0 mmol/L (3-11); Aspartate Aminotrans (AST/SGOT 46.0 U/L (12-37); Bilirubin, Total 3.5 mg/dL (0.1-1.0); Blood Urea Nitrogen 28.0 mg/dL (8-24); CO2, Blood 24.0 mmol/L (21-32); Calcium, Blood 8.6 mg/dL (8.5-10.1); Chloride, Blood 104.0 mmol/L (98-108); Creatinine, Blood 1.6 mg/dL (0.60-1.20); Globulin, Blood 3.7 g/dL (2.2-4.0); Glucose, Blood 127.0 mg/dL (70-99); Potassium, Blood 4.2 mmol/L (3.5-5.5); Sodium, Blood 137.0 mmol/L (136-145); Total Protein, Blood 6.9 g/dL (6.4-8.2)
== END | disposition home or self-care (01) ==
LOC: LAB SHORT 13:22 → LAB 13:22
PROVIDERS: Physician Assistant
DX: R10.84 Generalized abdominal pain (principal); R17 Unspecified jaundice
CPT/HCPCS: 80053; 82248; 83690; 84484; 85025